=== PATIENT | male | born 1970 | race Caucasian/White ===

== ENCOUNTER 2017-11-17 09:07 | Emergency (ER) | payer MEDICAID ==
[~2017-11-17] VITALS: Ht 180.3 cm; Wt 90.9 kg
[2017-11-17 09:15] VITALS: BP 130/101
[2017-11-17] MEDS ORDERED: HYDROcodone/acetaminophen 5mg/325mg tablet PO ONE (09:20)
[2017-11-17] MEDS ORDERED: diazepam 5mg tablet PO ONE (09:20)
[2017-11-17] MEDS ORDERED: dexamethasone 4mg tablet PO ONE (09:20)
[2017-11-17] MEDS ORDERED: BUPIVAcaine/PF 2.5 mg/ml (0.25%) 30ml vial IJ ONE (09:55)
[2017-11-17] MEDS ORDERED: METH500T PO (10:20)
[2017-11-17] MEDS ORDERED: HYDR-3965 PO (10:20)
[2017-11-17] MEDS ORDERED: VAL5T PO (10:20)
== END 2017-11-17 10:40 | disposition home or self-care (01) ==
LOC: ER 09:08
DX: S29.012A Strain of muscle and tendon of back wall of thorax, initial encounter (principal); M62.830 Muscle spasm of back; W06.XXXA Fall from bed, initial encounter; Y93.89 Activity, other specified; Y92.89 Other specified places as the place of occurrence of the external cause; Y99.8 Other external cause status
CPT/HCPCS: 20552; 99284; J3490; J8540